=== PATIENT | female | born 1985 | race Caucasian/White ===

== ENCOUNTER 2016-10-15 12:26 | Emergency (ER) | payer OTHER ==
[2016-10-15] MEDS ORDERED: NS 1,000 ML IV ONE (12:38)
[2016-10-15 12:54] LABS: COLOR YELLOW; LEUKOCYTE ESTERASE,URINE NEGATIVE (NEGATIVE); NITRITE,URINE NEGATIVE (NEGATIVE)
[2016-10-15 12:57] LABS: RED BLOOD CELL COUNT 4.47 10^6/uL (4.18-5.33)
[2016-10-15 12:58] LABS: % IMMATURE GRANULYOCYTES 0.2 % (0.0-1.1); HEMATOCRIT 41.9 % (38.0-47.0); HEMOGLOBIN 13.8 g/dL (12.6-16.3); MEAN CELL HEMOGLOBIN 30.9 pg (27.9-34.1); MEAN CELL HEMOGLOBIN CONCENTR. 32.9 g/dL (32.4-36.7); MEAN CELL VOLUME 93.7 fL (81.5-99.8); MEAN PLATELET VOLUME 10.3 fL (8.7-11.7); PLATELET COUNT 243 10^3/uL (150-400)
[2016-10-15 12:59] LABS: ABSOLUTE IMMATURE GRANULOCYTES 0.01 10^3/uL (0.00-0.10); ADD DIFF? NO
[2016-10-15 13:00] LABS: ADD MORPH? YES
--- NOTE | 2016-10-15 13:03 | EDPHY ---
H & P Time Seen by Provider: 10/15/16 12:43 HPI/ROS: Chief complaint. Flank pain HPI. 31-year-old female with right flank pain for 2 hours. She has associated chills. No left-sided or anterior abdominal discomfort. She has some urinary urgency and frequency. No fever, vomiting, diarrhea. No trauma. Pain is worse with movement. It seems to come in waves. No chest pain or shortness of breath. No similar symptoms previously. Currently having menstrual. ROS Constitutional. No fever but chills Eyes. no problems with vision ENT. no sore throat, no nasal drainage Cardiovascular. no chest pain Respiratory. no shortness of breath, no cough Abdominal. Right flank pain . Urinary frequency and urgency MS. no calf pain/swelling, no neck/back pain, no joint pain Skin. no rash Lymph. no swollen glands Neuro. no headache, no dizziness, no difficulty walking or with speech Past Medical/Surgical History: Healthy Social History: Single, nonsmoker, no alcohol Smoking Status: Former smoker Physical Exam: General Appearance: Alert well-developed female mild distress vital signs are stable Eyes: Pupils equal and round no pallor or injection. ENT, Mouth: Mucous membranes are moist. Respiratory: There are no retractions, lungs are clear to auscultation. Cardiovascular: Regular rate and rhythm. Gastrointestinal: Abdomen is soft and nontender, no masses, bowel sounds normal. Right flank tenderness to palpation Neurological: Awake and alert, sensory and motor exams grossly normal. Skin: Warm and dry, no rashes. Musculoskeletal: Neck is supple nontender. Extremities symmetrical, full range of motion. Psychiatric: Patient is oriented X 3, there is no agitation. Constitutional: Initial Vital Signs Temperature (C) 36.5 C 10/15/16 12:37 Heart Rate 69 10/15/16 12:37 Respiratory Rate 18 10/15/16 12:37 Blood Pressure 149/81 H 10/15/16 12:37 O2 Sat (%) 98 10/15/16 12:37 O2 Delivery Mode Room Air Allergies/Adverse Reactions: No Known Allergies Allergy (Unverified 10/15/16 12:36) Home Medications: Medication Instructions Recorded NK [No Known Home Meds] 10/15/16 Medical Decision Making Procedures: IV normal saline ED Course/Re-evaluation: Re-evaluation 1:30 p.m. patient is stable. The patient and I discussed laboratory evaluation and that while evaluation is normal the diagnosis is unclear. We discussed that there was some blood in her urine at may be menstrual blood but also could be consistent with kidney stone. We discussed further workup of kidney stone including CT abdomen. The patient would prefer to wait and do symptomatic care. She agrees to return for worsening symptoms or to be re-evaluated in the emergency department tomorrow should her symptoms continue. She does not have a regular physician. Differential Diagnosis: Right flank pain and I have considered musculoskeletal etiology, kidney infection, kidney stone. - Data Points Laboratory Results: Laboratory Results 10/15/16 12:45 10/15/16 12:45 10/15/16 10/15/16 10/15/16 12:45 12:45 12:45 WBC RBC Hgb Hct MCV MCH MCHC RDW Plt Count MPV Neut % (Auto) Lymph % (Auto) Holt % (Auto) Eos % (Auto) Baso % (Auto) Nucleat RBC Rel Count Absolute Neuts (auto) Absolute Lymphs (auto) Absolute Monos (auto) Absolute Eos (auto) Absolute Basos (auto) Absolute Nucleated RBC Immature Gran % Immature Gran # Platelet Estimate Sodium 140 mEq/L mEq/L (134-144) Potassium 4.0 mEq/L mEq/L (3.5-5.2) Chloride 103 mEq/L mEq/L (97-110) Carbon Dioxide 22 mEq/l mEq/l (22-31) Anion Gap 15 mEq/L mEq/L (8-16) BUN 15 mg/dL mg/dL (7-23) Creatinine 0.8 mg/dL mg/dL (0.6-1.0) Estimated GFR > 60 Glucose 90 mg/dL mg/dL (70-100) Calcium 9.1 mg/dL mg/dL (8.5-10.4) Urine Color YELLOW Urine Appearance CLEAR Urine pH 6.0 (5.0-7.5) Ur Specific [place] <= 1.005 (1.002-1.030) Urine Protein NEGATIVE (NEGATIVE) Urine Ketones NEGATIVE (NEGATIVE) Urine Blood 2+ H (NEGATIVE) Urine Nitrate NEGATIVE (NEGATIVE) Urine Bilirubin NEGATIVE (NEGATIVE) Urine Urobilinogen 0.2 EU EU (0.2-1.0) Ur Leukocyte Esterase NEGATIVE (NEGATIVE) Urine RBC 1-3 /hpf /hpf (0-3) Urine WBC NONE SEEN /hpf /hpf (0-3) Ur Epithelial Cells TRACE /lpf /lpf (NONE-1+) Urine Glucose NEGATIVE (NEGATIVE) Urine Test NEGATIVE 10/15/16 12:45 WBC 5.86 10^3/uL 10^3/uL (3.80-9.50) RBC 4.47 10^6/uL 10^6/uL (4.18-5.33) Hgb 13.8 g/dL g/dL (12.6-16.3) Hct 41.9 % % (38.0-47.0) MCV 93.7 fL fL (81.5-99.8) MCH 30.9 pg pg (27.9-34.1) MCHC 32.9 g/dL g/dL (32.4-36.7) RDW 13.0 % % (11.5-15.2) Plt Count 243 10^3/uL 10^3/uL (150-400) MPV 10.3 fL fL (8.7-11.7) Neut % (Auto) 48.6 % % (39.3-74.2) Lymph % (Auto) 36.9 % % (15.0-45.0) Holt % (Auto) 10.2 % % (4.5-13.0) Eos % (Auto) 3.4 % % (0.6-7.6) Baso % (Auto) 0.7 % % (0.3-1.7) Nucleat RBC Rel Count 0.0 % % (0.0-0.2) Absolute Neuts (auto) 2.85 10^3/uL 10^3/uL (1.70-6.50) Absolute Lymphs (auto) 2.16 10^3/uL 10^3/uL (1.00-3.00) Absolute Monos (auto) 0.60 10^3/uL 10^3/uL (0.30-0.80) Absolute Eos (auto) 0.20 10^3/uL 10^3/uL (0.03-0.40) Absolute Basos (auto) 0.00 10^3/uL L 10^3/uL (0.02-0.10) Absolute Nucleated RBC 0.00 10^3/uL 10^3/uL (0-0.01) Immature Gran % 0.2 % % (0.0-1.1) Immature Gran # 0.01 10^3/uL 10^3/uL (0.00-0.10) Platelet Estimate Pending Sodium Potassium Chloride Carbon Dioxide Anion Gap BUN Creatinine Estimated GFR Glucose Calcium Urine Color Urine Appearance Urine pH Ur Specific [place] Urine Protein Urine Ketones Urine Blood Urine Nitrate Urine Bilirubin Urine Urobilinogen Ur Leukocyte Esterase Urine RBC Urine WBC Ur Epithelial Cells Urine Glucose Urine Test Medications Given: Discontinued Medications Sodium Chloride (Ns) 1,000 mls @ 0 mls/hr IV ONCE ONE PRN Reason: Wide Open Stop: 10/15/16 12:39 Last Admin: 10/15/16 12:47 Dose: 1,000 mls Departure - Departure Disposition: Home, Routine, Self-Care Clinical Impression: Abdominal pain Qualifiers: Abdominal location: right upper quadrant Qualified Code(s): R10.11 - Right upper quadrant pain Condition: Good Instructions: Flank Pain (ED) Additional Instructions: Heat to sore area of your back. Ibuprofen 600 mg every 6 hours for discomfort. Return for worsening symptoms including fever, vomiting, worsening pain. Recheck tomorrow for continuing symptoms Referrals: NONE *PRIMARY CARE P,. [Primary Care Provider] - As per Instructions Jena Casey MD [Medical Doctor] - As per Instructions
[2016-10-15 13:10] LABS: ANION GAP 15 mEq/L (8-16); CALCIUM 9.1 mg/dL (8.5-10.4); CARBON DIOXIDE 22 mEq/l (22-31); CHLORIDE 103 mEq/L (97-110); CREATININE 0.8 mg/dL (0.6-1.0); GLOMERULAR FILTRATION RATE > 60; GLUCOSE 90 mg/dL (70-100); SODIUM 140 mEq/L (134-144)
[2016-10-15 13:24] LABS: WBC,URINE NONE SEEN /hpf (0-3)
[2016-10-15 13:47] VITALS: BP 124/68; PULSE 64; RESP 16; TEMP 98.1; O2SAT 97
== END 2016-10-15 13:47 | disposition home or self-care (01) ==
LOC: CED 12:26
DX: R10.11 Right upper quadrant pain (principal); Z87.891 Personal history of nicotine dependence
CPT/HCPCS: 80048-PO; 81003-PO; 81015-PO; 81025-PO; 85025-PO